=== PATIENT | female | born 1985 | race American Indian/Alaskan Native ===

== ENCOUNTER 2020-08-24 03:40 | Outpatient (CLI) | payer OTHER ==
[2020-08-24 04:13] VITALS: BP 109/65
[2020-08-24] MEDS ORDERED: FLUCONAZOLE 200 MG TAB PO ONE (05:26)
== END 2020-08-24 05:40 | disposition home or self-care (01) ==
LOC: TRG 03:40 → APU 03:43 → TRG 05:40
PROVIDERS: ATTEND Obstetrics & Gynecology
DX: O47.1 False labor at or after 37 completed weeks of gestation (principal); Z3A.37 37 weeks gestation of pregnancy
CPT/HCPCS: 59025

== ENCOUNTER 2020-09-05 00:02 | Outpatient (CLI) | payer OTHER ==
[2020-09-05 00:18] VITALS: BP 115/67
== END 2020-09-05 02:35 | disposition home or self-care (01) ==
LOC: TRG 00:02 → APU 00:02 → TRG 02:35
PROVIDERS: ATTEND Obstetrics & Gynecology
DX: O47.1 False labor at or after 37 completed weeks of gestation (principal); Z3A.38 38 weeks gestation of pregnancy
CPT/HCPCS: 59025